=== PATIENT | female | born 1985 | race Caucasian/White ===

== ENCOUNTER 2018-04-11 15:30 | Inpatient (IN) | payer BC ==
[2018-04-11] MEDS ORDERED: Sodium Chloride 0.9% 10 ML Syringe FLUSH PRN (15:59)
[2018-04-11] MEDS ORDERED: Ondansetron 4 MG/2 ML SDV IVPUSH PRN ×2 (15:59→17:15)
[2018-04-11] MEDS ORDERED: Nalbuphine 20 MG/ML 1 ML Syringe IVPUSH PRN (15:59)
[2018-04-11] MEDS ORDERED: Oxytocin/Lactated Ringers 10 UNIT/1,000 ML BAG IV SCH (16:00)
[2018-04-11] MEDS: Lactated Ringers 1,000 ML IV SCH ×3 (16:50→23:03)
[2018-04-11] MEDS ORDERED: diphenhydrAMINE 50 MG/ML SDV IVPUSH PRN (17:15)
[2018-04-11] MEDS ORDERED: fentaNYL 100 MCG/2 ML SDV EPIDUR PRN (17:15)
[2018-04-11] MEDS ORDERED: ePHEDrine 50 MG/ML SDV IVPUSH PRN (17:15)
[2018-04-11] MEDS ORDERED: fentaNYL 100 MCG/2 ML SDV ONE (17:17)
[2018-04-11] MEDS: Bupivacaine/fentaNYL/NS 100 ML Bag EPIDUR SCH (17:47)
--- NOTE | 2018-04-11 18:03 | PCM.PREANE ---
Preanesthetic Assessment - Procedure Proposed Procedure: BRIGHT - Anesthesia/Transfusion/Family Hx Anesthesia History: Prior Anesthesia Without Reaction Family History of Anesthesia Reaction: No Transfusion History: No Prior Transfusion(s) - Review of Systems General: No Symptoms Pulmonary: No Symptoms Cardiovascular: No Symptoms Gastrointestinal: Other (GERD with ) Neurological: No Symptoms Other: Reports: None - Physical Assessment NPO Status Date: 04/11/18 NPO Status Time: 15:00 Respiratory Rate: 16 Vital Signs: Last Vital Signs Temp 36.6 C 04/11/18 15:59 Pulse 91 04/11/18 15:59 Resp 16 04/11/18 15:59 BP 133/81 04/11/18 15:59 Pulse Ox Height: 1.65 m Weight: 94.347 kg ASA Class: 2 Mental Status: Alert & Oriented x3 Airway Class: Mallampati = 1 Dentition: Reports: Normal Dentition Thyro-Mental Finger Breadths: 3 Mouth Opening Finger Breadths: 3 ROM/Head Extension: Full Lungs: Clear to Auscultation, Normal Respiratory Effort Cardiovascular: Regular Rate, Regular Rhythm - Lab Values: Laboratory Last Values WBC 10.08 K/mm3 (3.98-10.04) H 04/11/18 16:06 RBC 3.65 M/mm3 (3.98-5.22) L 04/11/18 16:06 Hgb 11.9 gm/L (11.2-15.7) 04/11/18 16:06 Hct 34.7 % (34.1-44.9) 04/11/18 16:06 MCV 95.1 fl (79.4-94.8) H 04/11/18 16:06 MCH 32.6 pg (25.6-32.2) H 04/11/18 16:06 MCHC 34.3 g/dl (32.2-35.5) 04/11/18 16:06 RDW Std Deviation 46.5 fL (36.4-46.3) H 04/11/18 16:06 Plt Count 110 K/mm3 (182-369) L 04/11/18 16:06 MPV 13.4 fl (9.4-12.3) H 04/11/18 16:06 Neut % (Auto) 77.3 % (34.0-71.1) H 04/11/18 16:06 Lymph % (Auto) 18.1 % (19.3-51.7) L 04/11/18 16:06 [place] % (Auto) 3.3 % (4.7-12.5) L 04/11/18 16:06 Eos % (Auto) 0.9 (0.7-5.8) 04/11/18 16:06 Baso % (Auto) 0.2 % (0.1-1.2) 04/11/18 16:06 Neut # (Auto) 7.80 K/mm3 (1.56-6.13) H 04/11/18 16:06 Lymph # (Auto) 1.82 K/mm3 (1.18-3.74) 04/11/18 16:06 [place] # (Auto) 0.33 K/mm3 (0.24-0.36) 04/11/18 16:06 Eos # (Auto) 0.09 K/mm3 (0.04-0.36) 04/11/18 16:06 Baso # (Auto) 0.02 K/mm3 (0.01-0.08) 04/11/18 16:06 Manual Slide Review Abnormal smear 04/11/18 16:06 Blood Type O POSITIVE 04/11/18 16:06 Gel Antibody Screen Negative 04/11/18 16:06 - Allergies Allergies/Adverse Reactions: Allergies Allergy/AdvReac Type Severity Reaction Status Date / Time No Known Allergies Allergy Verified 03/07/14 03:02 - Blood Blood Available: No Product(s) Available: None - Anesthesia Plan Pre-Op Medication Ordered: None - Acknowledgements Anesthesia Type Planned: Epidural Pt an Appropriate Candidate for the Planned Anesthesia: Yes Alternatives and Risks of Anesthesia Discussed w Pt/Guardian: Yes Pt/Guardian Understands and Agrees with Anesthesia Plan: Yes 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 [No Known Home Meds] 04/11/18 [History] - CURRENT (IN HOUSE) MEDS Current Meds: Current Medications Diphenhydramine HCl (Benadryl) 25 mg IVPUSH Q6H PRN PRN Reason: Pruritis Ephedrine Sulfate (Ephedrine Sulfate) 5 mg IVPUSH ASDIRECTED PRN PRN Reason: Hypotension Fentanyl (Sublimaze) 100 mcg EPIDUR Q3H PRN PRN Reason: Pain Last Admin: 04/11/18 17:46 Dose: 100 mcg Fentanyl/Bupivacaine HCl (Fentanyl/Bupivacaine/Ns 2 Mcg-0.125% 100 Ml) 100 ml EPIDUR ASDIRECTED [facility] Last Admin: 04/11/18 17:47 Dose: 100 ml Lactated Ringer's (Ringers, Lactated) 1,000 mls @ 100 mls/hr IV ASDIRECTED ERIN Last Admin: 04/11/18 16:50 Dose: 999 mls/hr Oxytocin/Lactated Ringer's (Pitocin In Lr 10 Units/1,000 Ml) 10 unit in 1,000 mls @ 500 mls/hr IV .CONTINUOUS [facility] Nalbuphine HCl (Nubain) 10 mg IVPUSH Q2H PRN PRN Reason: pain Ondansetron HCl (Zofran) 4 mg IVPUSH Q4H PRN PRN Reason: Nausea/Vomiting Ondansetron HCl (Zofran) 4 mg IVPUSH ONETIME PRN PRN Reason: Nausea/Vomiting Sodium Chloride (Saline Flush) 10 ml FLUSH ASDIRECTED PRN PRN Reason: Keep Vein Open Discontinued Medications Fentanyl (Sublimaze) Confirm Administered Dose 100 mcg .[facility]TE [facility] Stop: 04/11/18 17:18
--- NOTE | 2018-04-11 18:40 | PCM.LDHP ---
L&D History of Present Illness - General Date of Service: 04/11/18 Admit Problem/Dx: Patient Status Order with Admit Dx/Problem 04/11/18 16:26 Patient Status [ADT] Routine Admission Diagnosis/Problem Admission Diagnosis/Problem Source of Information: Patient, Old Records History Limitations: Reports: No Limitations - History of Present Illness Introduction:: Pt is a @ 40w6d gestation who presents to L&D with CC of contractions. She is doing well. Good movements. Timing/Duration: Reports: intermittent Pain Score: 8 - Related Data Allergies/Adverse Reactions: Allergies Allergy/AdvReac Type Severity Reaction Status Date / Time No Known Allergies Allergy Verified 03/07/14 03:02 Home Medications: Home Meds . 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: - Past Surgical History HEENT Surgical History: Reports: Oral Surgery Female Surgical History: Reports: Section Social & Family History - Family History Family Medical History: Noncontributory - Tobacco Use Smoking Status *Q: Never Smoker Second Hand Smoke Exposure: No - Recreational Drug Use Recreational Drug Use: No L&D Exam - Vital Signs Vital Signs: Last Vital Signs Temp 97.8 F 04/11/18 15:59 Pulse 91 04/11/18 15:59 Resp 16 04/11/18 18:03 BP 133/81 04/11/18 15:59 Pulse Ox Weight: 208 lb - Patient Data Lab Results Last 24 hrs: Laboratory Results - last 24 hr 04/11/18 04/11/18 Range/Units 16:06 16:06 WBC 10.08 H (3.98-10.04) K/mm3 RBC 3.65 L (3.98-5.22) M/mm3 Hgb 11.9 (11.2-15.7) gm/L Hct 34.7 (34.1-44.9) % MCV 95.1 H (79.4-94.8) fl MCH 32.6 H (25.6-32.2) pg MCHC 34.3 (32.2-35.5) g/dl RDW Std Deviation 46.5 H (36.4-46.3) fL Plt Count 110 L (182-369) K/mm3 MPV 13.4 H (9.4-12.3) fl Neut % (Auto) 77.3 H (34.0-71.1) % Lymph % (Auto) 18.1 L (19.3-51.7) % [place] % (Auto) 3.3 L (4.7-12.5) % Eos % (Auto) 0.9 (0.7-5.8) Baso % (Auto) 0.2 (0.1-1.2) % Neut # (Auto) 7.80 H (1.56-6.13) K/mm3 Lymph # (Auto) 1.82 (1.18-3.74) K/mm3 [place] # (Auto) 0.33 (0.24-0.36) K/mm3 Eos # (Auto) 0.09 (0.04-0.36) K/mm3 Baso # (Auto) 0.02 (0.01-0.08) K/mm3 Manual Slide Review Abnormal smear Blood Type O POSITIVE Gel Antibody Screen Negative Result Diagrams: 04/11/18 16:06 Problem List Initiated/Reviewed/Updated: Yes Orders Last 24hrs: Active Orders 24 hr Category Date Time Status Patient Status [ADT] Routine ADT 04/11/18 16:26 Active Activity as Tolerated [RC] PFP Care 04/11/18 15:59 Active Communication Order [RC] ASDIRECTED Care 04/11/18 15:59 Active Heart Tones [RC] ASDIRECTED Care 04/11/18 16:00 Active Non Stress Test [RC] PER UNIT ROUTINE Care 04/11/18 15:59 Active Notify Provider [RC] PFP Care 04/11/18 15:59 Active Notify Provider [RC] PRN Care 04/11/18 15:59 Active Peripheral IV Care [RC] . DIRECTED Care 04/11/18 16:00 Active Pump Management, Intrathecal [RC] ASDIRECTED Care 04/11/18 16:01 Active Urinary Catheter Assessment [RC] ASDIRECTED Care 04/11/18 15:59 Active Vital Signs [RC] PER UNIT ROUTINE Care 04/11/18 15:59 Active Regular Diet [DIET] Diet 04/11/18 Dinner Active RAPID PLASMA REAGIN,RPR [CHEM] Routine Lab 04/11/18 16:06 Received Bupivacaine/fentaNYL/NS [fentaNYL/Bupivacaine/NS 2 MCG- Med 04/11/18 17:15 Active 0.125% 100 ML] 100 ml EPIDUR ASDIRECTED Lactated Ringers [Ringers, Lactated] 1,000 ml Med 04/11/18 16:00 Active IV ASDIRECTED Nalbuphine [Nubain] Med 04/11/18 15:59 Active 10 mg IVPUSH Q2H PRN Ondansetron [Zofran] Med 04/11/18 17:15 Active 4 mg IVPUSH ONETIME PRN Ondansetron [Zofran] Med 04/11/18 15:59 Active 4 mg IVPUSH Q4H PRN Oxytocin/Lactated Ringers [Pitocin in LR 10 Units/1,000 Med 04/11/18 16:00 Active ML] 10 unit in 1,000 ml IV .CONTINUOUS Sodium Chloride 0.9% [Saline Flush] Med 04/11/18 15:59 Active 10 ml FLUSH ASDIRECTED PRN diphenhydrAMINE [Benadryl] Med 04/11/18 17:15 Active 25 mg IVPUSH Q6H PRN ePHEDrine [ePHEDrine Sulfate] Med 04/11/18 17:15 Active 5 mg IVPUSH ASDIRECTED PRN fentaNYL [Sublimaze] Med 04/11/18 17:15 Active 100 mcg EPIDUR Q3H PRN Electronic Heart Tones Ext w TOCO [WOMSER] Oth 04/11/18 15:59 Ordered Routine Electronic Heart Tones Internal [WOMSER] Per Unit Oth 04/11/18 15:59 Ordered Routine Peripheral IV Insertion Adult [OM.PC] Routine Oth 04/11/18 15:59 Ordered Resuscitation Status Routine Resus Stat 04/11/18 15:59 Ordered Medication Orders Diphenhydramine HCl (Benadryl) 25 mg IVPUSH Q6H PRN PRN Reason: Pruritis Ephedrine Sulfate (Ephedrine Sulfate) 5 mg IVPUSH ASDIRECTED PRN PRN Reason: Hypotension Fentanyl (Sublimaze) 100 mcg EPIDUR Q3H PRN PRN Reason: Pain Last Admin: 04/11/18 17:46 Dose: 100 mcg Fentanyl/Bupivacaine HCl (Fentanyl/Bupivacaine/Ns 2 Mcg-0.125% 100 Ml) 100 ml EPIDUR ASDIRECTED ERIN Last Admin: 04/11/18 17:47 Dose: 100 ml Lactated Ringer's (Ringers, Lactated) 1,000 mls @ 100 mls/hr IV ASDIRECTED ERIN Last Admin: 04/11/18 18:22 Dose: 999 mls/hr Infusion: 04/11/18 17:51 Dose: 999 mls/hr Admin: 04/11/18 16:50 Dose: 999 mls/hr Oxytocin/Lactated Ringer's (Pitocin In Lr 10 Units/1,000 Ml) 10 unit in 1,000 mls @ 500 mls/hr IV .CONTINUOUS ERIN Nalbuphine HCl (Nubain) 10 mg IVPUSH Q2H PRN PRN Reason: pain Ondansetron HCl (Zofran) 4 mg IVPUSH Q4H PRN PRN Reason: Nausea/Vomiting Ondansetron HCl (Zofran) 4 mg IVPUSH ONETIME PRN PRN Reason: Nausea/Vomiting Sodium Chloride (Saline Flush) 10 ml FLUSH ASDIRECTED PRN PRN Reason: Keep Vein Open Assessment/Plan Comment:: 33 yo, , @ 40w6d gestation who presents in labor. Epidural in place for pain mgmt. * Observe * Defer to attendings orders
[2018-04-11] MEDS ORDERED: Bupivacaine 0.25% 10 ML SDV ONE (22:00)
[2018-04-12] MEDS: Bupivacaine/fentaNYL/NS 100 ML Bag EPIDUR SCH (01:13)
[2018-04-12] MEDS ORDERED: Citric Acid/Sodium Citrate Solution 30 ML Cup ONE (01:52)
[2018-04-12] MEDS ORDERED: Metoclopramide 10 MG/2 ML SDV ONE (01:52)
[2018-04-12] MEDS ORDERED: Citric Acid/Sodium Citrate Solution 30 ML Cup PO ONE (01:54)
[2018-04-12] MEDS ORDERED: Sodium Chloride 0.9% 10 ML Syringe FLUSH PRN (01:54)
[2018-04-12] MEDS ORDERED: Metoclopramide 10 MG/2 ML SDV IVPUSH ONE (01:54)
[2018-04-12] MEDS ORDERED: ceFAZolin 2 GM in Premix Bag 1 BAG IV ONE (01:54)
--- NOTE | 2018-04-12 01:56 | PCM.SN ---
- Free Text/Narrative Note: 0145 Called by nursing due to acute worsening of patient's pain. In to assess patient. She complain of RLQ pain which is radiating to the center of her abdomen and back. Tearful throughout. Exam still showed patient to be 8 cm / - 1 station. FHR tracing with min-mod variability, variable and early decelerations. [place] now also with acute change of blood being present. Reviewed with patient concerns for possible rupture given acute change in pain even through epidural. Discussed and patient willing to proceed to OR for RLTCS. Kary Jones
[2018-04-12] MEDS: Lactated Ringers 1,000 ML IV SCH (01:58)
[2018-04-12] MEDS ORDERED: fentaNYL 100 MCG/2 ML SDV IVPUSH PRN (03:30)
[2018-04-12] MEDS ORDERED: diphenhydrAMINE 50 MG/ML SDV IVPUSH PRN ×2 (03:30→04:42)
[2018-04-12] MEDS ORDERED: Ondansetron 4 MG/2 ML SDV IVPUSH PRN (03:30)
--- NOTE | 2018-04-12 03:30 | PCM.POSTAN ---
POST ANESTHESIA ASSESSMENT - MENTAL STATUS Mental Status: Alert, Oriented - VITAL SIGNS Pulse Rate: 94 SaO2: 98 Resp Rate: 18 Blood Pressure: 119/56 Temperature: 37.2 C - RESPIRATORY Respiratory Status: Respiratory Rate WNL, Airway Patent, O2 Saturation Stable - CARDIOVASCULAR CV Status: Pulse Rate WNL, Blood Pressure Stable - GASTROINTESTINAL GI Status: No Symptoms - PAIN Pain Score: 0 - POST OP HYDRATION Hydration Status: Adequate & Stable
[2018-04-12] MEDS ORDERED: Lidocaine 1% 30 ML SDV ONE (03:34)
--- NOTE | 2018-04-12 04:10 | PCM.OPNOTE ---
- General Post-Op/Procedure Note Date of Surgery/Procedure: 04/12/18 Operative Procedure(s): Repeat low transverse Findings: Moderate amount of scar tissue between the fascia and rectus. Moderate adhesive disease between the bladder and lower uterine segment. Window in the lower uterine segment measure 3 x 2 cm. Baby girl in a vertex presentation with APGARS of 9 & 9. Weight of 8 lbs 14 oz. Normal appearance of the fallopian tubes and ovaries. Pre Op Diagnosis: 40 weeks gestation. TOLAC. Acute abdominal pain - concerns for potential uterine rupture Post-Op Diagnosis: No findings of rupture, lower uterine segment window. S/p RLTCS Anesthesia Technique: Epidural Primary Surgeon: Kary Jones Secondary Surgeon: Digna mSall Anesthesia Provider: Fredis Patton Reason Manager English Was Necessary: Speed, safety of case Pathology: Cord blood collected. Placenta discarded Fluid Replacement, Intraop: 1,200 Output, Urine Amount: 500 EBL in mLs: 600 Complications: None Condition: Good Free Text/Narrative:: The risks, benefits, indications, potential complications, and alternatives were explained to the patient and informed consent obtained. After induction of anesthesia, the patient was placed in a supine position and then draped and prepped in the usual sterile manner. A Pfannenstiel incision was made and carried down through the subcutaneous tissue to the fascia. Fascial incision was made and extended transversely. The fascia was from the underlying rectus tissue superiorly and inferiorly. The peritoneum was identified and entered. Peritoneal incision was extended longitudinally. No bladder flap made as already uterine window noted. A low transverse uterine incision was made sharply with a scalpel and extended bluntly in a cephalocaudad direction. A baby girl was delivered from a vertex presentation with APGARS as above. After the umbilical cord was clamped and cut cord blood was obtained for evaluation. The placenta was removed intact and appeared normal. The uterus was exteriorized and cleared of clots. The uterine outline , tubes and ovaries appeared normal. The uterine incision was closed with running locked sutures of 0 Vicryl. Hemostasis was obtained with a second horizontal imbricating layer of 0 vicryl. The uterus was then placed back into the abdomen. The infracolic gutters were cleared of blood clots. The fascia was then reapproximated with running sutures of 0 Vicryl. The sucutaneous tissue was irrigated with sterile warm normal saline, hemostasis obtained with cautery. This layer was also closed with a running 0 vicryl. The skin was reapproximated with running Subcuticular 4-0 monocryl sutures. Instrument, sponge, and needle counts were correct prior the abdominal closure and at the conclusion of the case.
[2018-04-12] MEDS ORDERED: ePHEDrine 50 MG/ML SDV IVPUSH PRN (04:42)
[2018-04-12] MEDS ORDERED: Lanolin 100% Cream 7 GM Tube TOP PRN (04:42)
[2018-04-12] MEDS ORDERED: Ondansetron 4 MG/2 ML SDV IV PRN (04:42)
[2018-04-12] MEDS ORDERED: Naloxone 0.4 MG/ML SDV IVPUSH PRN (04:42)
[2018-04-12] MEDS ORDERED: Dextrose 5%-Lactated Ringers 1,000 ML IV SCH (04:42)
[2018-04-12] MEDS: Ketorolac 30 MG/ML SDV IVPUSH SCH ×3 (09:30→21:20)
--- NOTE | 2018-04-12 10:05 | PCM.LDHP ---
L&D History of Present Illness - General Date of Service: 04/11/18 Admit Problem/Dx: Admission Diagnosis/Problem Admission Diagnosis/Problem Source of Information: Patient History Limitations: Reports: No Limitations - History of Present Illness Introduction:: Patient is a 33 y/o at 40 3/7 wks who presents in labor. Patient reports with her 1st and then successful with her 2nd. Would like again this . Reports has been uncomplicated. No issues/concerns Pain Score: 0 - Related Data Allergies/Adverse Reactions: Allergies Allergy/AdvReac Type Severity Reaction Status Date / Time No Known Allergies Allergy Verified 03/07/14 03:02 Home Medications: Home Meds . 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): - Past Surgical History HEENT Surgical History: Reports: Oral Surgery Female Surgical History: Reports: Section Social & Family History - Family History Family Medical History: Noncontributory - Tobacco Use Smoking Status *Q: Never Smoker Second Hand Smoke Exposure: No - Alcohol Use Alcohol Use History: No - Recreational Drug Use Recreational Drug Use: No H&P Review of Systems - Review of Systems: Review Of Systems: See Below General: Reports: No Symptoms Pulmonary: Reports: No Symptoms Cardiovascular: Reports: No Symptoms Gastrointestinal: Reports: No Symptoms Genitourinary: Reports: No Symptoms Musculoskeletal: Reports: No Symptoms Psychiatric: Reports: No Symptoms Neurological: Reports: No Symptoms L&D Exam - Exam Exam: See Below - Vital Signs Vital Signs: Last Vital Signs Temp 37.1 C 04/12/18 07:00 Pulse 78 04/12/18 07:00 Resp 16 04/12/18 07:00 BP 112/58 L 04/12/18 07:00 Pulse Ox 98 04/12/18 07:00 Weight: 94.347 kg - OB Specific Contraction Intensity: Moderate Movement: Active Heart Tones: Present Heart Tones per Min: 145 Heart Rate (FHR) Variability: Moderate (6-25 bmp) Presentation: Vertex - June Score June Score Cervix Position: Posterior June Score Consistency: Soft June Score Effacement: 51-70% June Score Dilation: > 5 cm June Score Infant's Station: -2 June Score Total: 8 - Exam General: Alert, Oriented, Cooperative Lungs: Clear to Auscultation, Normal Respiratory Effort Cardiovascular: Regular Rate, Regular Rhythm GI/Abdominal Exam: Soft, Non-Tender Genitourinary: Normal external exam Back Exam: Normal Inspection Extremities: Normal Inspection Skin: Warm, Dry, Intact - Patient Data Lab Results Last 24 hrs: Laboratory Results - last 24 hr 04/11/18 04/11/18 04/11/18 Range/Units 16:06 16:06 16:06 WBC 10.08 H (3.98-10.04) K/mm3 RBC 3.65 L (3.98-5.22) M/mm3 Hgb 11.9 (11.2-15.7) gm/L Hct 34.7 (34.1-44.9) % MCV 95.1 H (79.4-94.8) fl MCH 32.6 H (25.6-32.2) pg MCHC 34.3 (32.2-35.5) g/dl RDW Std Deviation 46.5 H (36.4-46.3) fL Plt Count 110 L (182-369) K/mm3 MPV 13.4 H (9.4-12.3) fl Neut % (Auto) 77.3 H (34.0-71.1) % Lymph % (Auto) 18.1 L (19.3-51.7) % [place] % (Auto) 3.3 L (4.7-12.5) % Eos % (Auto) 0.9 (0.7-5.8) Baso % (Auto) 0.2 (0.1-1.2) % Neut # (Auto) 7.80 H (1.56-6.13) K/mm3 Lymph # (Auto) 1.82 (1.18-3.74) K/mm3 [place] # (Auto) 0.33 (0.24-0.36) K/mm3 Eos # (Auto) 0.09 (0.04-0.36) K/mm3 Baso # (Auto) 0.02 (0.01-0.08) K/mm3 Manual Slide Review Abnormal smear Creatinine 0.7 (0.55-1.02) mg/dL Est Cr Clr Drug Dosing 102.86 mL/min Estimated GFR (MDRD) > 60 (>60) mL/min AST 23 (15-37) U/L ALT 17 (14-59) U/L Blood Type O POSITIVE Gel Antibody Screen Negative Result Diagrams: 04/11/18 16:06 04/11/18 16:06 - Problem List (1) 40 weeks gestation of SNOMED Code(s): 22361374 ICD Code: Z3A.40 - 40 WEEKS GESTATION OF Status: Acute Current Visit: No (2) Normal labor SNOMED Code(s): 65326221 ICD Code: O80 - ENCOUNTER FOR FULL-TERM UNCOMPLICATED DELIVERY; Z37.9 - OUTCOME OF DELIVERY, UNSPECIFIED Status: Acute Current Visit: No (3) Previous section SNOMED Code(s): 793543938 ICD Code: Z98.89 - OTHER SPECIFIED POSTPROCEDURAL STATES * DO NOT USE * Status: Acute Current Visit: No Problem List Initiated/Reviewed/Updated: Yes Orders Last 24hrs: Active Orders 24 hr Category Date Time Status Activity as Tolerated [RC] .Routine Care 04/12/18 04:42 Active Communication Order [RC] ASDIRECTED Care 04/12/18 03:30 Active Communication Order [RC] PER UNIT ROUTINE Care 04/12/18 04:42 Active Communication Order [RC] ROUTINE Care 04/12/18 03:30 Active Intake and Output [RC] Q4H Care 04/12/18 04:42 Active Notify Provider Intake and Out [RC] ASDIRECTED Care 04/12/18 04:42 Active Notify Provider [RC] ASDIRECTED Care 04/12/18 03:30 Active Pulse Oximetry [RC] Q1HR Care 04/12/18 03:30 Active RT Incentive Spirometry [RC] Q2HWA Care 04/12/18 04:42 Active Urinary Catheter Assessment [RC] 03,09,15,21 Care 04/11/18 15:59 Active Urinary Catheter Removal [RC] 0200 Care 04/13/18 04:01 Active Vital Signs [RC] Q1H Care 04/12/18 03:30 Active Regular Diet [DIET] Diet 04/12/18 Breakfast Active CBC W/O DIFF,HEMOGRAM [HEME] AM Lab 04/13/18 05:11 Ordered RAPID PLASMA REAGIN,RPR [CHEM] Routine Lab 04/11/18 16:06 Received Acetaminophen/oxyCODONE [Percocet 325-5 MG] Med 04/12/18 04:42 Active 2 tab PO Q4H PRN Dextrose 5%-Lactated Ringers 1,000 ml Med 04/12/18 04:42 Active IV ASDIRECTED Docusate Sodium [Colace] Med 04/12/18 04:42 Active 100 mg PO Q12H PRN Ibuprofen [Motrin] Med 04/13/18 03:15 Active 600 mg PO Q6H PRN Ketorolac [Toradol] Med 04/12/18 09:15 Active 30 mg IVPUSH Q6H Lanolin [Lansinoh HPA] Med 04/12/18 04:42 Active See Dose Instructions TOP ASDIRECTED PRN Naloxone [Narcan] Med 04/12/18 04:42 Active 0.1 mg IVPUSH SEECOMMENT PRN Ondansetron [Zofran] Med 04/12/18 04:42 Active 4 mg IV Q8H PRN Ondansetron [Zofran] Med 04/12/18 03:30 Active 4 mg IVPUSH ONETIME PRN diphenhydrAMINE [Benadryl] Med 04/12/18 03:30 Active 25 mg IVPUSH Q6H PRN diphenhydrAMINE [Benadryl] Med 04/12/18 04:42 Active 25 mg IVPUSH Q6H PRN ePHEDrine [ePHEDrine Sulfate] Med 04/12/18 04:42 Active 5 mg IVPUSH SEECOMMENT PRN fentaNYL [Sublimaze] Med 04/12/18 03:30 Active 50 mcg IVPUSH Q5M PRN Assess Lochia [WOMSER] Per Unit Routine Oth 04/12/18 04:42 Ordered Assess Uterine Involution [WOMSER] Per Unit Routine Oth 04/12/18 04:42 Ordered Breast Pump [WOMSER] Per Unit Routine Oth 04/12/18 04:42 Ordered Heat Therapy [OM.PC] Per Unit Routine Oth 04/12/18 04:42 Ordered Peripheral IV Discontinue [OM.PC] Routine Oth 04/12/18 04:42 Ordered Pulse Oximetry Continuous Monitoring [OM.PC] Routine Oth 04/12/18 03:30 Active Sequential Compression Device [OM.PC] Per Unit Routine Oth 04/12/18 04:42 Ordered Resuscitation Status Routine Resus Stat 04/11/18 15:59 Ordered Medication Orders Diphenhydramine HCl (Benadryl) 25 mg IVPUSH Q6H PRN PRN Reason: Pruritis Diphenhydramine HCl (Benadryl) 25 mg IVPUSH Q6H PRN PRN Reason: Itching or Nausea Docusate Sodium (Colace) 100 mg PO Q12H PRN PRN Reason: Constipation Emollient Ointment (Lansinoh Hpa) 0 gm TOP ASDIRECTED PRN PRN Reason: Sore Nipples Ephedrine Sulfate (Ephedrine Sulfate) 5 mg IVPUSH SEECOMMENT PRN PRN Reason: Other Fentanyl (Sublimaze) 50 mcg IVPUSH Q5M PRN PRN Reason: Pain Dextrose/Lactated Ringer's (Dextrose 5%-Lactated Ringers) 1,000 mls @ 125 mls/ hr IV ASDIRECTED ERIN Stop: 04/12/18 12:41 Last Admin: 04/12/18 07:06 Dose: 125 mls/hr Ibuprofen (Motrin) 600 mg PO Q6H PRN PRN Reason: mild pain or fever Ketorolac Tromethamine (Toradol) 30 mg IVPUSH Q6H ERIN Stop: 04/12/18 21:16 Naloxone HCl (Narcan) 0.1 mg IVPUSH SEECOMMENT PRN PRN Reason: Respiratory Depression Ondansetron HCl (Zofran) 4 mg IVPUSH ONETIME PRN PRN Reason: Nausea/Vomiting Ondansetron HCl (Zofran) 4 mg IV Q8H PRN PRN Reason: Nausea/Vomiting Oxycodone/Acetaminophen (Percocet 325-5 Mg) 2 tab PO Q4H PRN PRN Reason: Pain (moderate 4-6) Assessment/Plan Comment:: 33 y/o presents as 40 3/7 wks in labor * Labs drawn * GBS negative, no need for antibiotics * Epidural already in place, AROM performed with release of clear fluid * Aware of risks/benefits of TOLAC. Consent signed * Anticipate
--- NOTE | 2018-04-12 10:57 | PCM48HPAN ---
Post Anesthesia Note - EVALUATION WITHIN 48HRS OF ANESTHETIC Vital Signs in Normal Range: Yes Patient Participated in Evaluation: Yes Respiratory Function Stable: Yes Airway Patent: Yes Cardiovascular Function Stable: Yes Hydration Status Stable: Yes Pain Control Satisfactory: Yes Nausea and Vomiting Control Satisfactory: Yes Mental Status Recovered: Yes
[2018-04-13] MEDS: Docusate Sodium 100 MG Cap PO PRN ×2 (04:23→20:24)
[2018-04-13] MEDS: Acetaminophen/oxyCODONE 325-5 MG Tab PO PRN ×3 (04:23→23:18)
--- NOTE | 2018-04-13 06:52 | PCM.PNPP ---
- General Info Date of Service: 04/13/18 Functional Status: Reports: Pain Controlled, Tolerating Diet, Ambulating, Urinating - Review of Systems General: Reports: No Symptoms Pulmonary: Reports: No Symptoms Cardiovascular: Reports: No Symptoms Gastrointestinal: Reports: Abdominal Pain (manageable ) Genitourinary: Reports: No Symptoms Musculoskeletal: Reports: No Symptoms Neurological: Reports: No Symptoms - Patient Data Vital Signs - Most Recent: Last Vital Signs Temp 36.9 C 04/13/18 05:25 Pulse 98 04/13/18 05:25 Resp 16 04/13/18 05:25 BP 116/75 04/13/18 05:25 Pulse Ox 98 04/13/18 05:25 Weight - Most Recent: 94.347 kg I&O - Last 24 Hours: Intake & Output 04/12/18 04/12/18 04/13/18 14:59 22:59 06:59 Intake Total 2520 1320 600 Output Total 466 369 0684 Balance 2070 420 -400 Lab Results - Last 24 Hours: Laboratory Results - last 24 hr 04/13/18 Range/Units 05:45 WBC 9.45 (3.98-10.04) K/mm3 RBC 2.77 L (3.98-5.22) M/mm3 Hgb 8.7 L (11.2-15.7) gm/L Hct 26.5 L (34.1-44.9) % MCV 95.7 H (79.4-94.8) fl MCH 31.4 (25.6-32.2) pg MCHC 32.8 (32.2-35.5) g/dl RDW Std Deviation 47.9 H (36.4-46.3) fL Plt Count 92 L (182-369) K/mm3 MPV 12.1 (9.4-12.3) fl Med Orders - Current: Current Medications Diphenhydramine HCl (Benadryl) 25 mg IVPUSH Q6H PRN PRN Reason: Pruritis Diphenhydramine HCl (Benadryl) 25 mg IVPUSH Q6H PRN PRN Reason: Itching or Nausea Docusate Sodium (Colace) 100 mg PO Q12H PRN PRN Reason: Constipation Last Admin: 04/13/18 04:23 Dose: 100 mg Emollient Ointment (Lansinoh Hpa) 0 gm TOP ASDIRECTED PRN PRN Reason: Sore Nipples Ephedrine Sulfate (Ephedrine Sulfate) 5 mg IVPUSH SEECOMMENT PRN PRN Reason: Other Fentanyl (Sublimaze) 50 mcg IVPUSH Q5M PRN PRN Reason: Pain Ibuprofen (Motrin) 600 mg PO Q6H PRN PRN Reason: mild pain or fever Naloxone HCl (Narcan) 0.1 mg IVPUSH SEECOMMENT PRN PRN Reason: Respiratory Depression Ondansetron HCl (Zofran) 4 mg IVPUSH ONETIME PRN PRN Reason: Nausea/Vomiting Ondansetron HCl (Zofran) 4 mg IV Q8H PRN PRN Reason: Nausea/Vomiting Oxycodone/Acetaminophen (Percocet 325-5 Mg) 2 tab PO Q4H PRN PRN Reason: Pain (moderate 4-6) Last Admin: 04/13/18 04:23 Dose: 1 tab Discontinued Medications Citric Acid/Sodium Citrate (Bicitra Solution) 30 ml PO ONETIME ONE Stop: 04/12/18 01:55 Last Admin: 04/12/18 01:57 Dose: 30 ml Diphenhydramine HCl (Benadryl) 25 mg IVPUSH Q6H PRN PRN Reason: Pruritis Ephedrine Sulfate (Ephedrine Sulfate) 5 mg IVPUSH ASDIRECTED PRN PRN Reason: Hypotension Fentanyl (Sublimaze) 100 mcg EPIDUR Q3H PRN PRN Reason: Pain Last Admin: 04/11/18 17:46 Dose: 100 mcg Fentanyl (Sublimaze) Confirm Administered Dose 100 mcg .ROUTE .[facility]-MED ONE Stop: 04/11/18 17:18 Last Admin: 04/11/18 18:24 Dose: Not Given Fentanyl/Bupivacaine HCl (Fentanyl/Bupivacaine/Ns 2 Mcg-0.125% 100 Ml) 100 ml EPIDUR ASDIRECTED [facility] Last Admin: 04/12/18 01:13 Dose: 100 ml Lactated Ringer's (Ringers, Lactated) 1,000 mls @ 100 mls/hr IV ASDIRECTED [facility] Last Admin: 04/12/18 01:58 Dose: 999 mls/hr Oxytocin/Lactated Ringer's (Pitocin In Lr 10 Units/1,000 Ml) 10 unit in 1,000 mls @ 500 mls/hr IV .CONTINUOUS ERIN Cefazolin Sodium/Dextrose 2 gm (/ Premix) 50 mls @ 100 mls/hr IV ONETIME ONE Stop: 04/12/18 02:23 Last Admin: 04/12/18 05:39 Dose: Not Given Dextrose/Lactated Ringer's (Dextrose 5%-Lactated Ringers) 1,000 mls @ 125 mls/ hr IV ASDIRECTED ERIN Stop: 04/12/18 12:41 Last Admin: 04/12/18 07:06 Dose: 125 mls/hr Ketorolac Tromethamine (Toradol) 30 mg IVPUSH Q6H ERIN Stop: 04/12/18 21:16 Last Admin: 04/12/18 21:20 Dose: 30 mg Lidocaine HCl (Xylocaine-Mpf 1%) Confirm Administered Dose 30 ml .ROUTE .STK- MED ONE Stop: 04/12/18 03:35 Last Admin: 04/12/18 02:22 Dose: 15 ml Metoclopramide HCl (Reglan) 10 mg IVPUSH ONETIME ONE Stop: 04/12/18 01:55 Last Admin: 04/12/18 01:55 Dose: 10 mg Nalbuphine HCl (Nubain) 10 mg IVPUSH Q2H PRN PRN Reason: pain Ondansetron HCl (Zofran) 4 mg IVPUSH Q4H PRN PRN Reason: Nausea/Vomiting Ondansetron HCl (Zofran) 4 mg IVPUSH ONETIME PRN PRN Reason: Nausea/Vomiting Sodium Chloride (Saline Flush) 10 ml FLUSH ASDIRECTED PRN PRN Reason: Keep Vein Open Sodium Chloride (Saline Flush) 10 ml FLUSH ASDIRECTED PRN PRN Reason: Keep Vein Open - Interaction Infant Disposition, : [place] in Room with Family Interaction: Holding Infant Feeding: Attempted ; Nursed Fair/Poor Support Person: Significant Other - Recovery Exam Fundal Tone: Firm Fundal Level: 1 Fingerbreadths Below Umbilicus Fundal Placement: Midline Lochia Amount: Scant Lochia Color: Rubra/Red Perineum Description: Intact, Minimal Bruising/Swelling Episiotomy/Laceration: None Bladder Status: Voiding Urinary Elimination: Voided - Exam General: Alert, Oriented, Cooperative Lungs: Clear to Auscultation, Normal Respiratory Effort Cardiovascular: Regular Rate, Regular Rhythm GI/Abdominal Exam: Soft, Tender (appropriate post op) Extremities: Normal Inspection, Pedal Edema Skin: Warm, Dry, Intact Wound/Incisions: Healing Well, No Drainage - Problem List & Annotations (1) 40 weeks gestation of SNOMED Code(s): 54008589 Code(s): Z3A.40 - 40 WEEKS GESTATION OF Status: Acute Current Visit: No (2) Normal labor SNOMED Code(s): 93779023 Code(s): O80 - ENCOUNTER FOR FULL-TERM UNCOMPLICATED DELIVERY; Z37.9 - OUTCOME OF DELIVERY, UNSPECIFIED Status: Acute Current Visit: No (3) Previous section SNOMED Code(s): 110557327 Code(s): Z98.89 - OTHER SPECIFIED POSTPROCEDURAL STATES * DO NOT USE * Status: Acute Current Visit: No (4) S/P repeat low transverse SNOMED Code(s): 997855299, 32933202, 588536873, 605424201, 000485143 Code(s): Z98.891 - HISTORY OF UTERINE SCAR FROM PREVIOUS SURGERY Status: Acute Current Visit: Yes - Problem List Review Problem List Initiated/Reviewed/Updated: Yes - My Orders Last 24 Hours: My Active Orders 04/12/18 17:51 Ready for Discharge [RC] PER UNIT ROUTINE 04/12/18 Breakfast Regular Diet [DIET] 04/13/18 03:15 Ibuprofen [Motrin] 600 mg PO Q6H PRN - Assessment Assessment:: 33 y/o G3 now P3003 POD#1 from [facility] at 40 4/7 wks - Plan Plan:: [facility]CS * Routine cares * CBC today with appropriate/as expected drop in Hb * Encourage breast feeding * Discharge home tomorrow
[2018-04-13] MEDS: Ibuprofen 600 MG Tab PO PRN ×2 (08:52→20:07)
[2018-04-14] MEDS: Acetaminophen/oxyCODONE 325-5 MG Tab PO PRN ×2 (05:30→09:51)
--- NOTE | 2018-04-14 07:01 | PCM.PNPP ---
- General Info Date of Service: 04/14/18 Functional Status: Reports: Pain Controlled, Tolerating Diet, Ambulating, Urinating - Review of Systems General: Reports: No Symptoms Pulmonary: Reports: No Symptoms Cardiovascular: Reports: No Symptoms Gastrointestinal: Reports: Abdominal Pain (managed with medications ) Genitourinary: Reports: No Symptoms Musculoskeletal: Reports: No Symptoms Neurological: Reports: No Symptoms - Patient Data Vital Signs - Most Recent: Last Vital Signs Temp 36.5 C 04/14/18 03:00 Pulse 81 04/14/18 03:00 Resp 14 04/14/18 03:00 BP 125/75 04/14/18 03:00 Pulse Ox 97 04/14/18 03:00 Weight - Most Recent: 94.347 kg I&O - Last 24 Hours: Intake & Output 04/13/18 04/13/18 04/14/18 14:59 22:59 06:59 Intake Total 320 640 Balance 320 640 Lab Results - Last 24 Hours: Laboratory Results - last 24 hr 04/11/18 Range/Units 16:06 RPR Non-reactive (NONREACTIVE) Med Orders - Current: Current Medications Diphenhydramine HCl (Benadryl) 25 mg IVPUSH Q6H PRN PRN Reason: Pruritis Diphenhydramine HCl (Benadryl) 25 mg IVPUSH Q6H PRN PRN Reason: Itching or Nausea Docusate Sodium (Colace) 100 mg PO Q12H PRN PRN Reason: Constipation Last Admin: 04/13/18 20:24 Dose: 100 mg Emollient Ointment (Lansinoh Hpa) 0 gm TOP ASDIRECTED PRN PRN Reason: Sore Nipples Ephedrine Sulfate (Ephedrine Sulfate) 5 mg IVPUSH SEECOMMENT PRN PRN Reason: Other Fentanyl (Sublimaze) 50 mcg IVPUSH Q5M PRN PRN Reason: Pain Ibuprofen (Motrin) 600 mg PO Q6H PRN PRN Reason: mild pain or fever Last Admin: 04/13/18 20:07 Dose: 600 mg Naloxone HCl (Narcan) 0.1 mg IVPUSH SEECOMMENT PRN PRN Reason: Respiratory Depression Ondansetron HCl (Zofran) 4 mg IVPUSH ONETIME PRN PRN Reason: Nausea/Vomiting Ondansetron HCl (Zofran) 4 mg IV Q8H PRN PRN Reason: Nausea/Vomiting Oxycodone/Acetaminophen (Percocet 325-5 Mg) 2 tab PO Q4H PRN PRN Reason: Pain (moderate 4-6) Last Admin: 04/14/18 05:30 Dose: 2 tab Discontinued Medications Bupivacaine HCl (Sensorcaine-Mpf 0.25%) 10 ml .ROUTE .STK-MED ONE Stop: 04/11/18 22:01 Citric Acid/Sodium Citrate (Bicitra Solution) 30 ml PO ONETIME ONE Stop: 04/12/18 01:55 Last Admin: 04/12/18 01:57 Dose: 30 ml Diphenhydramine HCl (Benadryl) 25 mg IVPUSH Q6H PRN PRN Reason: Pruritis Ephedrine Sulfate (Ephedrine Sulfate) 5 mg IVPUSH ASDIRECTED PRN PRN Reason: Hypotension Fentanyl (Sublimaze) 100 mcg EPIDUR Q3H PRN PRN Reason: Pain Last Admin: 04/11/18 17:46 Dose: 100 mcg Fentanyl (Sublimaze) Confirm Administered Dose 100 mcg .ROUTE .STK-MED ONE Stop: 04/11/18 17:18 Last Admin: 04/11/18 18:24 Dose: Not Given Fentanyl/Bupivacaine HCl (Fentanyl/Bupivacaine/Ns 2 Mcg-0.125% 100 Ml) 100 ml EPIDUR ASDIRECTED [facility] Last Admin: 04/12/18 01:13 Dose: 100 ml Lactated Ringer's (Ringers, Lactated) 1,000 mls @ 100 mls/hr IV ASDIRECTED [facility] Last Admin: 04/12/18 01:58 Dose: 999 mls/hr Oxytocin/Lactated Ringer's (Pitocin In Lr 10 Units/1,000 Ml) 10 unit in 1,000 mls @ 500 mls/hr IV .CONTINUOUS [facility] Cefazolin Sodium/Dextrose 2 gm (/ Premix) 50 mls @ 100 mls/hr IV ONETIME ONE Stop: 04/12/18 02:23 Last Admin: 04/12/18 05:39 Dose: Not Given Dextrose/Lactated Ringer's (Dextrose 5%-Lactated Ringers) 1,000 mls @ 125 mls/ hr IV ASDIRECTED [facility] Stop: 04/12/18 12:41 Last Admin: 04/12/18 07:06 Dose: 125 mls/hr Ketorolac Tromethamine (Toradol) 30 mg IVPUSH Q6H ERIN Stop: 04/12/18 21:16 Last Admin: 04/12/18 21:20 Dose: 30 mg Lidocaine HCl (Xylocaine-Mpf 1%) Confirm Administered Dose 30 ml .ROUTE .STK- MED ONE Stop: 04/12/18 03:35 Last Admin: 04/12/18 02:22 Dose: 15 ml Metoclopramide HCl (Reglan) 10 mg IVPUSH ONETIME ONE Stop: 04/12/18 01:55 Last Admin: 04/12/18 01:55 Dose: 10 mg Nalbuphine HCl (Nubain) 10 mg IVPUSH Q2H PRN PRN Reason: pain Ondansetron HCl (Zofran) 4 mg IVPUSH Q4H PRN PRN Reason: Nausea/Vomiting Ondansetron HCl (Zofran) 4 mg IVPUSH ONETIME PRN PRN Reason: Nausea/Vomiting Sodium Chloride (Saline Flush) 10 ml FLUSH ASDIRECTED PRN PRN Reason: Keep Vein Open Sodium Chloride (Saline Flush) 10 ml FLUSH ASDIRECTED PRN PRN Reason: Keep Vein Open - Infant Interaction Disposition, : in Room with Family Infant Interaction: Holding Infant Feeding: Breastfed ; Nursed Well Support Person: Significant Other - Recovery Exam Fundal Tone: Firm Fundal Level: 1 Fingerbreadths Below Umbilicus Fundal Placement: Midline Lochia Amount: Scant Lochia Color: Rubra/Red Perineum Description: Intact, Minimal Bruising/Swelling Episiotomy/Laceration: None Bladder Status: Voiding Urinary Elimination: Voided - Exam General: Alert, Oriented, Cooperative Lungs: Clear to Auscultation, Normal Respiratory Effort Cardiovascular: Regular Rate, Regular Rhythm GI/Abdominal Exam: Soft, Non-Tender Extremities: Normal Inspection Skin: Warm, Dry, Intact Wound/Incisions: Healing Well, No Drainage - Problem List & Annotations (1) 40 weeks gestation of SNOMED Code(s): 05251111 Code(s): Z3A.40 - 40 WEEKS GESTATION OF Status: Acute Current Visit: No (2) Normal labor SNOMED Code(s): 41892496 Code(s): O80 - ENCOUNTER FOR FULL-TERM UNCOMPLICATED DELIVERY; Z37.9 - OUTCOME OF DELIVERY, UNSPECIFIED Status: Acute Current Visit: No (3) Previous section SNOMED Code(s): 258261858 Code(s): Z98.89 - OTHER SPECIFIED POSTPROCEDURAL STATES * DO NOT USE * Status: Acute Current Visit: No (4) S/P repeat low transverse SNOMED Code(s): 487589117, 73441541, 125048733, 161531644, 143643697 Code(s): Z98.891 - HISTORY OF UTERINE SCAR FROM PREVIOUS SURGERY Status: Acute Current Visit: Yes - Problem List Review Problem List Initiated/Reviewed/Updated: Yes - My Orders Last 24 Hours: My Active Orders 04/14/18 06:59 Ready for Discharge [RC] PER UNIT ROUTINE - Assessment Assessment:: 33 y/o G3 now P3003 POD#2 from [facility] at 40 4/7 wks - Plan Plan:: [facility] * Routine care * Encourage breast feeding * Discharge home today
--- NOTE | 2018-04-14 07:03 | PCM.DCSUM1 ---
Discharge Summary - Discharge Data Discharge Date: 04/14/18 Discharge Disposition: Home, Self-Care 01 Condition: Good - Discharge Diagnosis/Problem(s) (1) 40 weeks gestation of SNOMED Code(s): 49472798 ICD Code: Z3A.40 - 40 WEEKS GESTATION OF Status: Acute Current Visit: No (2) Normal labor SNOMED Code(s): 50772884 ICD Code: O80 - ENCOUNTER FOR FULL-TERM UNCOMPLICATED DELIVERY; Z37.9 - OUTCOME OF DELIVERY, UNSPECIFIED Status: Acute Current Visit: No (3) Previous section SNOMED Code(s): 929127459 ICD Code: Z98.89 - OTHER SPECIFIED POSTPROCEDURAL STATES * DO NOT USE * Status: Acute Current Visit: No (4) S/P repeat low transverse SNOMED Code(s): 053205262, 29651920, 523548962, 798753256, 642978754 ICD Code: Z98.891 - HISTORY OF UTERINE SCAR FROM PREVIOUS SURGERY Status: Acute Current Visit: Yes - Patient Summary/Data Operative Procedure(s) Performed: Repeat low transverse Complications: None Consults: None Recommended Follow-up Testing/Procedures: Follow up in 2 weeks for check Hospital Course: 33 y/o presented at 40 3/7 wks in labor. Had a history of with her first baby and then successful with her 2nd. During labor she started to have increasing abdominal pain and findings of momo blood in her carrizales catheter. Along with this there was more minimal variability at times on tracing. Concern was for possible underlying rupture. She was taken for [facility]. Findings at operation of window, but no momo uterine rupture. Remainder of procedure was uncomplicated. See delivery note. she did well and was discharged home on POD#2 - Patient Instructions Diet: Regular Diet as Tolerated Activity: No Lifting Over 10 Pounds Activity, Other: Pelvic Rest for 6 weeks Driving: Do Not Drive (While taking narcotics ) Showering/Bathing: May Shower, No Tub Bathing/Swimming Wound/Incision Care: Keep Operative Site/Wound Site Clean and Dry Notify Provider of: Fever, Increased Pain, Swelling and Redness, Drainage, Nausea and/or Vomiting - Discharge Plan *PRESCRIPTION DRUG MONITORING PROGRAM REVIEWED*: Not Applicable (No matching patient in data base) *COPY OF PRESCRIPTION DRUG MONITORING REPORT IN PATIENT CARLEEN: Not Applicable Prescriptions/Med Rec: Acetaminophen/oxyCODONE [Percocet 325-5 MG] 2 tab PO Q4H PRN #20 tablet PRN Reason: Pain (Moderate 4-6) Home Medications: Home Meds Acetaminophen/oxyCODONE [Percocet 325-5 MG] 2 tab PO Q4H PRN #20 tablet [Rx] Docusate Sodium [Colace] 100 mg PO Q12H PRN cap 04/12/18 [Rx] Ibuprofen [Motrin] 600 mg PO Q6H PRN tablet 04/12/18 [Rx] Referrals: Kenneth Rain MD [Primary Care Provider] - (2 weeks for check ) - Discharge Summary/Plan Comment DC Time >30 min.: No - Patient Data Vitals - Most Recent: Last Vital Signs Temp 36.5 C 04/14/18 03:00 Pulse 81 04/14/18 03:00 Resp 14 04/14/18 03:00 BP 125/75 04/14/18 03:00 Pulse Ox 97 04/14/18 03:00 Weight - Most Recent: 94.347 kg I&O - Last 24 hours: Intake & Output 04/13/18 04/14/18 04/14/18 22:59 06:59 14:59 Intake Total 640 Balance 640 Lab Results - Last 24 hrs: Laboratory Results - last 24 hr 04/11/18 Range/Units 16:06 RPR Non-reactive (NONREACTIVE) Med Orders - Current: Current Medications Diphenhydramine HCl (Benadryl) 25 mg IVPUSH Q6H PRN PRN Reason: Pruritis Diphenhydramine HCl (Benadryl) 25 mg IVPUSH Q6H PRN PRN Reason: Itching or Nausea Docusate Sodium (Colace) 100 mg PO Q12H PRN PRN Reason: Constipation Last Admin: 04/13/18 20:24 Dose: 100 mg Emollient Ointment (Lansinoh Hpa) 0 gm TOP ASDIRECTED PRN PRN Reason: Sore Nipples Ephedrine Sulfate (Ephedrine Sulfate) 5 mg IVPUSH SEECOMMENT PRN PRN Reason: Other Fentanyl (Sublimaze) 50 mcg IVPUSH Q5M PRN PRN Reason: Pain Ibuprofen (Motrin) 600 mg PO Q6H PRN PRN Reason: mild pain or fever Last Admin: 04/13/18 20:07 Dose: 600 mg Naloxone HCl (Narcan) 0.1 mg IVPUSH SEECOMMENT PRN PRN Reason: Respiratory Depression Ondansetron HCl (Zofran) 4 mg IVPUSH ONETIME PRN PRN Reason: Nausea/Vomiting Ondansetron HCl (Zofran) 4 mg IV Q8H PRN PRN Reason: Nausea/Vomiting Oxycodone/Acetaminophen (Percocet 325-5 Mg) 2 tab PO Q4H PRN PRN Reason: Pain (moderate 4-6) Last Admin: 04/14/18 05:30 Dose: 2 tab Discontinued Medications Bupivacaine HCl (Sensorcaine-Mpf 0.25%) 10 ml .ROUTE .STK-MED ONE Stop: 04/11/18 22:01 Citric Acid/Sodium Citrate (Bicitra Solution) 30 ml PO ONETIME ONE Stop: 04/12/18 01:55 Last Admin: 04/12/18 01:57 Dose: 30 ml Diphenhydramine HCl (Benadryl) 25 mg IVPUSH Q6H PRN PRN Reason: Pruritis Ephedrine Sulfate (Ephedrine Sulfate) 5 mg IVPUSH ASDIRECTED PRN PRN Reason: Hypotension Fentanyl (Sublimaze) 100 mcg EPIDUR Q3H PRN PRN Reason: Pain Last Admin: 04/11/18 17:46 Dose: 100 mcg Fentanyl (Sublimaze) Confirm Administered Dose 100 mcg .ROUTE .STK-MED ONE Stop: 04/11/18 17:18 Last Admin: 04/11/18 18:24 Dose: Not Given Fentanyl/Bupivacaine HCl (Fentanyl/Bupivacaine/Ns 2 Mcg-0.125% 100 Ml) 100 ml EPIDUR ASDIRECTED [facility] Last Admin: 04/12/18 01:13 Dose: 100 ml Lactated Ringer's (Ringers, Lactated) 1,000 mls @ 100 mls/hr IV ASDIRECTED ERIN Last Admin: 04/12/18 01:58 Dose: 999 mls/hr Oxytocin/Lactated Ringer's (Pitocin In Lr 10 Units/1,000 Ml) 10 unit in 1,000 mls @ 500 mls/hr IV .CONTINUOUS [facility] Cefazolin Sodium/Dextrose 2 gm (/ Premix) 50 mls @ 100 mls/hr IV ONETIME ONE Stop: 04/12/18 02:23 Last Admin: 04/12/18 05:39 Dose: Not Given Dextrose/Lactated Ringer's (Dextrose 5%-Lactated Ringers) 1,000 mls @ 125 mls/ hr IV ASDIRECTED [facility] Stop: 04/12/18 12:41 Last Admin: 04/12/18 07:06 Dose: 125 mls/hr Ketorolac Tromethamine (Toradol) 30 mg IVPUSH Q6H [facility] Stop: 04/12/18 21:16 Last Admin: 04/12/18 21:20 Dose: 30 mg Lidocaine HCl (Xylocaine-Mpf 1%) Confirm Administered Dose 30 ml .ROUTE .STK- MED ONE Stop: 04/12/18 03:35 Last Admin: 04/12/18 02:22 Dose: 15 ml Metoclopramide HCl (Reglan) 10 mg IVPUSH ONETIME ONE Stop: 04/12/18 01:55 Last Admin: 04/12/18 01:55 Dose: 10 mg Nalbuphine HCl (Nubain) 10 mg IVPUSH Q2H PRN PRN Reason: pain Ondansetron HCl (Zofran) 4 mg IVPUSH Q4H PRN PRN Reason: Nausea/Vomiting Ondansetron HCl (Zofran) 4 mg IVPUSH ONETIME PRN PRN Reason: Nausea/Vomiting Sodium Chloride (Saline Flush) 10 ml FLUSH ASDIRECTED PRN PRN Reason: Keep Vein Open Sodium Chloride (Saline Flush) 10 ml FLUSH ASDIRECTED PRN PRN Reason: Keep Vein Open
[2018-04-14] MEDS: Docusate Sodium 100 MG Cap PO PRN (09:51)
[2018-04-14 11:46] VITALS: BP 119/71
== END 2018-04-14 11:00 | disposition home or self-care (01) | DRG 540 ==
LOC: JD.OBCHECK 15:30 → JD.OB 15:30 → JD.OBCHECK 16:26 → JD.OB 16:26 → OBSVTOIN 04-12 02:27 → JD.OB 04-12 02:28
PROVIDERS: ADMIT Obstetrics & Gynecology; ATTEND Obstetrics & Gynecology
PROC: 00HU33Z Insertion of Infusion Device into Spinal Canal, Percutaneous Approach (ICD-10-PCS; 2018-04-11)
PROC: 3E0R3BZ Introduction of Anesthetic Agent into Spinal Canal, Percutaneous Approach (ICD-10-PCS; 2018-04-11)
PROC: 10D00Z1 Extraction of Products of Conception, Low, Open Approach (ICD-10-PCS; principal; 2018-04-12)
PROC: 10907ZC Drainage of Amniotic Fluid, Therapeutic from Products of Conception, Via Natural or Artificial Opening (ICD-10-PCS; 2018-04-12)
PROC: 6A550ZT Pheresis of Cord Blood Stem Cells, Single (ICD-10-PCS; 2018-04-12)
DX: O34.211 Maternal care for low transverse scar from previous cesarean delivery (principal); N85.8 Other specified noninflammatory disorders of uterus; Z3A.40 40 weeks gestation of pregnancy; Z37.0 Single live birth; O48.0 Post-term pregnancy
CPT/HCPCS: 01967; 01968; 36415; 51702; 59025; 82565; 84450; 84460; 85025; 85027; 86592; 86850; 86900; 86901; 94762; A9270-GY; J1885; J2765; J3010; J3490; J7042; J7120